=== PATIENT | female | born 1990 | race Caucasian/White ===

== ENCOUNTER 2019-04-03 17:13 | Emergency (ER) | payer OTHER ==
--- NOTE | 2019-04-03 18:28 | EDM.PDOC ---
ED HPI GENERAL MEDICAL PROBLEM - General Chief Complaint: Laceration Stated Complaint: FISH HOOK LEFT POINTER FINGER Time Seen by Provider: 04/03/19 18:28 Source of Information: Reports: Patient History Limitations: Reports: No Limitations - History of Present Illness INITIAL COMMENTS - FREE TEXT/NARRATIVE: pt arrived with a fishook in her left pointer finger. This is a treble hook. Onset: Today Duration: Hour(s): Location: Reports: Upper Extremity, Left Associated Symptoms: Reports: No Other Symptoms - Related Data Allergies Allergy/AdvReac Type Severity Reaction Status Date / Time No Known Allergies Allergy Verified 04/03/19 18:09 Home Meds: Home Meds NK [No Known Home Meds] 04/03/19 [History] Social & Family History - Tobacco Use Smoking Status *Q: Unknown Ever Smoked ED ROS GENERAL - Review of Systems Review Of Systems: See Below Constitutional: Reports: No Symptoms HEENT: Reports: No Symptoms Respiratory: Reports: No Symptoms Endocrine: Reports: No Symptoms GI/Abdominal: Reports: No Symptoms : Reports: No Symptoms Musculoskeletal: Reports: Other (pt has a fishook in the left pointer finger. ) Skin: Reports: No Symptoms ED EXAM, SKIN/RASH Exam: See Below Text/Narrative:: pt arrived with a fish hook in the left pointyer finger. Exam Limited By: No Limitations General Appearance: Alert, Mild Distress Extremities: Other ( treble hook in the left pointer finger. The area was cleansed and infiltrated with lidocaine. The hook was pushed through and the brade cut off with out a problem the hook was removed. ) Course - Vital Signs Last Recorded V/S: Last Vital Signs Temp 36 C 04/03/19 18:10 Pulse 91 04/03/19 18:10 Resp 16 04/03/19 18:10 BP 132/97 H 04/03/19 18:10 Pulse Ox 98 04/03/19 18:10 - Orders/Labs/Meds Meds: Medications Discontinued Medications Generic Name Dose Route Start Last Admin Trade Name Freq PRN Reason Stop Dose Admin Lidocaine HCl 5 ml 04/03/19 18:20 04/03/19 18:27 Xylocaine-Mpf 1% INJECT 04/03/19 18:21 5 ml ONETIME ONE Administration Departure - Departure Time of Disposition: 18:27 Disposition: Home, Self-Care 01 Condition: Fair Clinical Impression: Foreign body (FB) in soft tissue - Discharge Information Instructions: Puncture Wound Referrals: PCP,None [Primary Care Provider] - Forms: ED Department Discharge Care Plan Goals: soak in soapy water if tender, rtc if problems.
== END 2019-04-03 18:36 | disposition home or self-care (01) ==
LOC: JP.ED 17:13
DX: S60.451A Superficial foreign body of left index finger, initial encounter (principal); W45.8XXA Other foreign body or object entering through skin, initial encounter
CPT/HCPCS: 99282; J2001